=== PATIENT | male | born 1985 | race Caucasian/White ===

== ENCOUNTER 2022-01-14 11:57 | Outpatient (CLI) | payer OTHER | END 2022-01-14 12:07 | disposition home or self-care (01) | LOC: MRI 11:57 | PROVIDERS: ATTEND Radiology Diagnostic Radiology | DX: M54.16 Radiculopathy, lumbar region (principal) | CPT/HCPCS: 72148 ==

== ENCOUNTER 2023-07-18 10:28 | Outpatient (CLI) | payer OTHER | END 2023-07-18 10:34 | disposition home or self-care (01) | LOC: RAD 10:28 | DX: M54.50 Low back pain, unspecified (principal) ==